=== PATIENT | female | born 1960 | race Caucasian/White ===

== ENCOUNTER 2020-09-09 09:11 | Emergency (ER) | payer BC ==
--- NOTE | 2020-09-09 10:00 | EDM.PDOC ---
ED HPI GENERAL MEDICAL PROBLEM - General Chief Complaint: Respiratory Problem Stated Complaint: SOB/WEAKNESS Time Seen by Provider: 09/09/20 09:30 Source of Information: Reports: Patient History Limitations: Reports: No Limitations - History of Present Illness INITIAL COMMENTS - FREE TEXT/NARRATIVE: 59 YO WF PRESENTS TO ER WITH COMPLAINTS OF GENERALIZED WEAKNESS WITH ASSOCIATED SHORTNESS OF BREATH. PT REPORTS DIAGNOSIS OF COVID 2 WEEKS AGO AND BEGAN FEELING SHORTNESS OF BREATH 1 WEEK AGO. PT REPORTS NO FEVER X 3 DAYS BUT BECAME CONCERNED THAT SHE'S NOT FEELING BETTER AFTER 2 WEEKS PROMPTING ER EVALUATION. PT REPORTS TOBACCO USE HISTORY BUT STATES SHE IS CURRENTLY SMOKING MINIMALLY. PT REPORTS PRODUCTIVE COUGH BUT DENIES HEADACHE OR CHEST PAIN. PT DENIES VOMITING BUT STATES SHE'S HAD A DECREASED APPETITE OVER THE COURSE OF HER ILLNESS. PT DENIES ANY INHALER USE OR CURRENT PRESCRIPTION TREATMENT FOR COVID. Duration: Week(s): (2) Location: Reports: Generalized Severity: Mild Improves with: Reports: Rest Worsens with: Reports: Movement Associated Symptoms: Reports: Cough, cough w sputum, Shortness of Breath, Weakness. Denies: Fever/Chills, Headaches, Nausea/Vomiting headache Pain Score (Numeric/FACES): 4 - Related Data Allergies Allergy/AdvReac Type Severity Reaction Status Date / Time No Known Drug Allergies Allergy Cannot Verified 09/09/20 10:05 Remember Home Meds: Home Meds PARoxetine [Paxil] 10 mg PO DAILY 04/07/15 [History] Albuterol Sulfate [Albuterol Sulfate Hfa] 8.5 gm IH Q4H #1 hfa.[email or web address] 09/09/20 [Rx] ED ROS GENERAL - Review of Systems Review Of Systems: See Below Constitutional: Reports: Malaise, Weakness HEENT: Reports: Rhinitis Respiratory: Reports: Shortness of Breath, Cough Cardiovascular: Reports: No Symptoms Endocrine: Reports: Fatigue GI/Abdominal: Reports: No Symptoms : Reports: No Symptoms Musculoskeletal: Reports: No Symptoms Skin: Reports: No Symptoms Neurological: Reports: No Symptoms Psychiatric: Reports: No Symptoms Hematologic/Lymphatic: Reports: No Symptoms Immunologic: Reports: No Symptoms ED EXAM, GENERAL - Physical Exam Exam: See Below Exam Limited By: No Limitations General Appearance: Alert, WD/WN, No Apparent Distress Nose: Normal Inspection, Normal Mucosa, No Blood Throat/Mouth: Normal Inspection, Normal Lips, Normal Teeth, Normal Gums, Normal Oropharynx, Normal Voice, No Airway Compromise Head: Atraumatic, Normocephalic Neck: Normal Inspection, Supple, Non-Tender, Full Range of Motion Respiratory/Chest: No Respiratory Distress, Lungs Clear, Normal Breath Sounds, No Accessory Muscle Use, Chest Non-Tender Cardiovascular: Normal Peripheral Pulses, Regular Rate, Rhythm, No Edema, No Gallop, No JVD, No Murmur, No Rub GI/Abdominal: Normal Bowel Sounds, Soft, Non-Tender, No Organomegaly, No Distention, No Abnormal Bruit, No Mass Extremities: Normal Inspection, Normal Range of Motion, Non-Tender, Normal Capillary Refill, No Pedal Edema Neurological: Alert, Oriented, CN II-XII Intact, Normal Cognition, Normal Gait, Normal Reflexes, No Motor/Sensory Deficits Psychiatric: Normal Affect, Normal Mood Skin Exam: Warm, Dry, Intact, Normal Color, No Rash Lymphatic: No Adenopathy Course - Vital Signs Last Recorded V/S: Last Vital Signs Temp 487.7 C H 09/09/20 09:12 Pulse 121 H 09/09/20 09:12 Resp 20 09/09/20 09:12 BP 140/94 H 09/09/20 09:12 Pulse Ox 97 09/09/20 09:12 - Orders/Labs/Meds Orders: Active Orders 24 hr Category Date Time Status Chest 2V [CR] Stat Exams 09/09/20 09:45 Ordered UA RFX BARRETT AND CULT IF INDIC [URIN] Stat Lab 09/09/20 09:45 Ordered Sodium Chloride 0.9% [Normal Saline] 1,000 ml Med 09/09/20 09:45 Active IV .BOLUS Medication Orders Sodium Chloride (Normal Saline) 1,000 mls @ 999 mls/hr IV .BOLUS ONE Stop: 09/09/20 10:45 Last Admin: 09/09/20 10:20 Dose: 999 mls/hr Documented by: BLANK Labs: Laboratory Tests 09/09/20 09/09/20 09/09/20 Range/Units 09:30 09:30 09:30 WBC 9.30 (5.00-10.00) 10^3/uL RBC 4.73 (3.80-5.50) 10^6/uL Hgb 15.1 (12.0-16.0) g/dL Hct 42.2 (37.0-47.0) % MCV 89.2 (82.0-92.0) fL MCH 31.9 H (27.0-31.0) pg MCHC 35.8 (32.0-36.0) g/dL RDW 12.4 (11.5-14.5) % Plt Count 174 (150-400) 10^3/uL MPV 9.6 (7.4-10.4) fL Immature Gran % (Auto) 0.2 (0.0-5.0) % Neut % (Auto) 73.1 H (50.0-70.0) % Lymph % (Auto) 17.6 L (20.0-40.0) % Ramsey % (Auto) 8.7 H (2.0-8.0) % Eos % (Auto) 0.2 L (1.0-3.0) % Baso % (Auto) 0.2 (0.0-1.0) % Neut # (Auto) 6.79 (2.50-7.00) 10^3/uL Lymph # (Auto) 1.64 (1.00-4.00) 10^3/uL Ramsey # (Auto) 0.81 H (0.10-0.80) 10^3/uL Eos # (Auto) 0.02 L (0.10-0.30) 10^3/uL Baso # (Auto) 0.02 (0.00-0.10) 10^3/uL Immature Gran # (Auto) 0.02 (0.00-0.50) 10^3/uL Sodium 132 L (136-145) mmol/L Potassium 4.0 (3.3-5.3) mmol/L Chloride 94 L (98-115) mmol/L Carbon Dioxide 21.5 (21.0-32.0) mmol/L Anion Gap 20.5 H (5-15) mmol/L BUN 6 (6-25) mg/dL Creatinine 0.41 L (0.51-1.17) mg/dL Est Cr Clr Drug Dosing 113.52 mL/min Estimated GFR (MDRD) > 60 mL/min Glucose 121 H (75 - 99) mg/dL Lactic Acid 1.9 (0.4-2.0) mmol/L Calcium 9.2 (8.7-10.3) mg/dL Total Bilirubin 0.5 (0.2-1.0) mg/dL AST 109 H (15-37) U/L ALT 80 H (12-78) U/L Alkaline Phosphatase 102 (46-116) IU/L Total Protein 8.3 H (6.4-8.2) g/dL Albumin 4.10 (3.00-4.80) g/dL Meds: Medications Generic Name Dose Route Start Last Admin Trade Name Freq PRN Reason Stop Dose Admin Sodium Chloride 1,000 mls @ 999 mls/hr 09/09/20 09:45 09/09/20 10:20 Normal Saline IV 09/09/20 10:45 999 mls/hr .BOLUS ONE Administration - Radiology Interpretation Free Text/Narrative:: PT REPORTS FEELING BETTER AFTER IV FLUIDS. PT INSTRUCTED TO RETURN TO ER FOR WORSENING SYMPTOMS. PT SHOULD CONTINUE TO QUARANTINE UNTIL END OF WEEK AND HAVE A REPEAT COVID TEST PRIOR TO RETURNING TO WORK. Departure - Departure Time of Disposition: 10:42 Disposition: Home, Self-Care 01 Condition: Good Clinical Impression: COVID-19, Viral upper respiratory illness - Discharge Information Prescriptions: Albuterol Sulfate [Albuterol Sulfate Hfa] 8.5 gm IH Q4H #1 hfa.[email or web address] Instructions: COVID-19, Viral Respiratory Infection Referrals: Isabel Moore PA-C [Primary Care Provider] - Forms: ED Department Discharge Additional Instructions: 1. DISCHARGE HOME 2. ALBUTEROL HFA INHALER 2 PUFFS EVERY 4 HOURS AND NEEDED 3. FOLLOW UP IN CLINIC IN 2 DAYS FOR RE-EVALUATION AND COVID RETEST 4. RETURN TO ER FOR WORSENING SYMPTOMS 5. ZINC/VITAMIN C AND D AND ZYRTEC 10MG DAILY FOR CONGESTION Sepsis Event Note (ED) - Evaluation Sepsis Screening Result: Possible Sepsis Risk - Focused Exam Vital Signs: Vital Signs Temp Pulse Resp BP Pulse Ox 09/09/20 09:12 487.7 C H 121 H 20 140/94 H 97 - My Orders Last 24 Hours: My Active Orders 09/09/20 09:45 Chest 2V [CR] Stat UA RFX BARRETT AND CULT IF INDIC [URIN] Stat Sodium Chloride 0.9% [Normal Saline] 1,000 ml IV .BOLUS - Assessment/Plan Last 24 Hours: My Active Orders 09/09/20 09:45 Chest 2V [CR] Stat UA RFX BARRETT AND CULT IF INDIC [URIN] Stat Sodium Chloride 0.9% [Normal Saline] 1,000 ml IV .BOLUS Assessment:: 1. COVID RELATED VIRAL ILLNESS WITHOUT PNEUMONIA Plan: 1. DISCHARGE HOME 2. ALBUTEROL HFA INHALER 2 PUFFS EVERY 4 HOURS AND NEEDED 3. FOLLOW UP IN CLINIC IN 2 DAYS FOR RE-EVALUATION AND COVID RETEST 4. RETURN TO ER FOR WORSENING SYMPTOMS 5. ZINC/VITAMIN C AND D AND ZYRTEC 10MG DAILY FOR CONGESTION
[2020-09-09 10:07] LABS: ANION GAP 20.5 mmol/L (5-15); CHLORIDE,CL 94 mmol/L (98-115); SODIUM,NA 132 mmol/L (136-145)
[2020-09-09] MEDS: Sodium Chloride 0.9% 1,000 ML IV ONE (10:20)
--- NOTE | 2020-09-09 10:29 | CR ---
[id number] RAD/RAD Chest PA And Lateral EXAM: RAD Chest PA And Lateral CLINICAL DATA: SHORTNESS OF BREATH VIRAL INFECTION COMPARISON: NO PREVIOUS SIMILAR EXAM IS AVAILABLE. FINDINGS: The lungs are clear but hyperaerated The cardiomediastinal contour is normal. IMPRESSION: AIRWAY DISEASE NO PNEUMONIA CURRENTLY Melchor Paredes MD 09/09/20 [id number] Thank you for allowing us to participate in the care of your patient.
[2020-09-09 10:48] VITALS: BP 153/72; PULSE 89
== END 2020-09-09 11:20 | disposition home or self-care (01) ==
LOC: KA.ED 09:11
DX: U07.1 COVID-19 (principal); J06.9 Acute upper respiratory infection, unspecified
CPT/HCPCS: 71046; 80053; 83605; 85025; 99285-25; J7030

== ENCOUNTER 2022-06-29 16:32 | Emergency (ER) | payer BC ==
[2022-06-29 16:53] VITALS: BP 162/98; PULSE 101
== END 2022-06-29 17:42 | disposition home or self-care (01) ==
LOC: KA.ED 16:32
DX: K06.8 Other specified disorders of gingiva and edentulous alveolar ridge (principal); Z79.899 Other long term (current) drug therapy; Z86.16 Personal history of COVID-19
CPT/HCPCS: 99282; 99283

== ENCOUNTER 2023-07-08 21:43 | Emergency (ER) | payer BC ==
[2023-07-08] MEDS ORDERED: Lidocaine 1% with EPINEPHrine 1:100,000 10 ML MDV INJECT ONE (22:12)
[2023-07-08] MEDS ORDERED: Lidocaine 1% with EPINEPHrine 1:100,000 10 ML MDV ONE (22:13)
[2023-07-08 22:42] LABS: HEMATOCRIT 35.8 % (37.0-47.0); HEMOGLOBIN 12.6 g/dL (12.0-16.0)
[2023-07-08] MEDS ORDERED: Sodium Chloride 0.9% 1,000 ML IV ONE (22:59)
[2023-07-08] MEDS ORDERED: Sodium Chloride 0.9% 10 ML Syringe FLUSH PRN (23:00)
[2023-07-08 23:21] LABS: BASOPHILS ABSOLUTE AUTO 0.03 10^3/uL (0.00-0.10); BASOPHILS PERCENT AUTO 0.4 % (0.0-1.0); EOSINOPHILS ABSOLUTE AUTO 0.18 10^3/uL (0.10-0.30); EOSINOPHILS PERCENT AUTO 2.5 % (1.0-3.0); HEMATOCRIT 36.5 % (37.0-47.0); HEMOGLOBIN 12.6 g/dL (12.0-16.0); IMMATURE GRAN ABSOLUTE AUTO 0.04 10^3/uL (0.00-0.50); IMMATURE GRAN PERCENT AUTO 0.6 % (0.0-5.0); LYMPHOCYTES ABSOLUTE AUTO 3.58 10^3/uL (1.00-4.00); LYMPHOCYTES PERCENT AUTO 49.7 % (20.0-40.0); MEAN CORPUSCULAR HEMOGLOBIN 31.7 pg (27.0-31.0); MEAN CORPUSCULAR HGB CONC 34.5 g/dL (32.0-36.0); MEAN CORPUSCULAR VOLUME 91.9 fL (82.0-92.0); MEAN PLATELET VOLUME 9.2 fL (7.4-10.4); MONOCYTES ABSOLUTE AUTO 0.66 10^3/uL (0.10-0.80); MONOCYTES PERCENT AUTO 9.2 % (2.0-8.0); NEUTROPHILS ABSOLUTE AUTO 2.72 10^3/uL (2.50-7.00); NEUTROPHILS PERCENT AUTO 37.6 % (50.0-70.0); PLATELET COUNT,PLT 219 10^3/uL (150-400); RED BLOOD CELL COUNT 3.97 10^6/uL (3.80-5.50); WHITE BLOOD CELL COUNT,WBC 7.21 10^3/uL (5.00-10.00)
[2023-07-08 23:31] LABS: BLOOD UREA NITROGEN,BUN 2 mg/dL (7-18); CALCIUM 8.5 mg/dL (8.7-10.3); CARBON DIOXIDE,CO2 23.7 mmol/L (21.0-32.0); CREATININE 0.39 mg/dL (0.51-1.17); GLUCOSE RANDOM 102 mg/dL (70-140); POTASSIUM,K 3.6 mmol/L (3.5-5.1); SODIUM,NA 126 mmol/L (136-145)
[2023-07-08 23:32] LABS: ESTIMATED GFR 113 mL/min (>=60)
[2023-07-08 23:38] LABS: ANION GAP 14.9 mmol/L (5-15); CHLORIDE,CL 91 mmol/L (98-107)
[2023-07-08 23:52] LABS: PROTHROMBIN TIME 9.7 SEC (9.2-11.2); PTT,PARTIAL THROMBOPLSTIN TIME 25.8 SEC (22.8-31.4)
[2023-07-09 00:10] VITALS: BP 143/83; PULSE 81
== END 2023-07-08 23:57 ==
LOC: KA.ED 21:43
DX: S02.119B Unspecified fracture of occiput, initial encounter for open fracture (principal); F10.929 Alcohol use, unspecified with intoxication, unspecified; F17.200 Nicotine dependence, unspecified, uncomplicated; Z79.899 Other long term (current) drug therapy; Z86.16 Personal history of COVID-19; W01.10XA Fall on same level from slipping, tripping and stumbling with subsequent striking against unspecified object, initial encounter
CPT/HCPCS: 12002; 36415; 70450; 80048; 80307; 85014; 85018; 85025; 85610; 85730; 96360; 99283; 99285-25; J3490; J7030

== ENCOUNTER 2024-05-22 15:57 | Emergency (ER) | payer BC, OTHER ==
[2024-05-22] MEDS ORDERED: Sodium Chloride 0.9% 10 ML Syringe FLUSH PRN (16:08)
[2024-05-22 16:17] VITALS: BP 108/68; PULSE 98
[2024-05-22 16:23] LABS: BASOPHILS ABSOLUTE AUTO 0.02 10^3/uL (0.00-0.10); BASOPHILS PERCENT AUTO 0.4 % (0.0-1.0); EOSINOPHILS ABSOLUTE AUTO 0.03 10^3/uL (0.10-0.30); EOSINOPHILS PERCENT AUTO 0.6 % (1.0-3.0); HEMATOCRIT 39.8 % (37.0-47.0); IMMATURE GRAN ABSOLUTE AUTO 0.01 10^3/uL (0.00-0.50); IMMATURE GRAN PERCENT AUTO 0.2 % (0.0-5.0); LYMPHOCYTES ABSOLUTE AUTO 1.42 10^3/uL (1.00-4.00); LYMPHOCYTES PERCENT AUTO 26.2 % (20.0-40.0); MEAN CORPUSCULAR HEMOGLOBIN 31.2 pg (27.0-31.0); MEAN CORPUSCULAR HGB CONC 35.2 g/dL (32.0-36.0); MEAN CORPUSCULAR VOLUME 88.6 fL (82.0-92.0); MEAN PLATELET VOLUME 8.9 fL (7.4-10.4); MONOCYTES ABSOLUTE AUTO 0.74 10^3/uL (0.10-0.80); MONOCYTES PERCENT AUTO 13.7 % (2.0-8.0); NEUTROPHILS PERCENT AUTO 58.9 % (50.0-70.0); PLATELET COUNT,PLT 184 10^3/uL (150-400); RED BLOOD CELL COUNT 4.49 10^6/uL (3.80-5.50); RED CELL DISTRIBUTION WIDTH 14.3 % (11.5-14.5); WHITE BLOOD CELL COUNT,WBC 5.42 10^3/uL (5.00-10.00)
[2024-05-22 16:39] LABS: ALBUMIN 3.43 g/dL (3.40-5.00); ANION GAP 17.2 mmol/L (5-15); BILIRUBIN TOTAL 0.5 mg/dL (0.2-1.0); CARBON DIOXIDE,CO2 24.6 mmol/L (21.0-32.0); CREATININE 0.44 mg/dL (0.51-1.17); EST CRCL DRUG DOSING (CG) 100.05 mL/min; POTASSIUM,K 4.8 mmol/L (3.5-5.1); PROTEIN TOTAL,TP 7.9 g/dL (6.4-8.2)
== END 2024-05-22 17:16 | disposition home or self-care (01) ==
LOC: KA.ED 15:57
DX: R42 Dizziness and giddiness (principal); R79.89 Other specified abnormal findings of blood chemistry; F10.929 Alcohol use, unspecified with intoxication, unspecified; Z86.16 Personal history of COVID-19; Z79.899 Other long term (current) drug therapy; Z79.2 Long term (current) use of antibiotics
CPT/HCPCS: 36415; 70450; 80053; 80307; 82140; 85025; 99284